=== PATIENT | female | born 1940 | race Caucasian/White ===

== ENCOUNTER 2017-06-02 14:49 | Emergency (ER) | payer OTHER, BC ==
[~2017-06-02] VITALS: Ht 167.6 cm; Wt 56.1 kg
[~2017-06-02 14:49] MED LIST: AZITHROMYCIN250 MG PO; DEXILANT60 MG PO; EXTRA STRENGTH500 M1 PO; KENALOG,ARISTOC15 GM TP; PREDNISONE20 MG PO; TRAZODONE HCL100 MG PO; VENTOLIN HFA18 GM IH
[2017-06-02 18:02] LABS: HEMATOCRIT 37.2 % (36.0-46.0); MCH 32.5 PG (29.0-34.0); MCHC 33.3 G/DL (30.0-36.0); MCV 97.6 FL (83-99); MEAN PLAT.VOLUME 9.8 uM^3 (9.5-12.4); PLATELET COUNT 134 K/uL (156-360); RBC DIS.WIDTH-CV 12.1 % (11.8-14.6); RBC DIS.WIDTH-SD 43.8 % (39-53); RED BLOOD COUNT 3.81 M/uL (3.80-5.20); WHITE BLOOD COUNT 4.5 K/uL (4.1-10.2)
[2017-06-02 18:20] LABS: CHLORIDE 103 mEq/L (99-109); POTASSIUM 4.3 mEq/L (3.7-5.4); SODIUM 139 mEq/L (136-147)
[2017-06-02 18:22] LABS: GLUCOSE 106 mg/dL (70-99)
[2017-06-02 18:23] LABS: ANION GAP 6 MEQ/L (2-14)
[2017-06-02 18:24] LABS: TOTAL BILIRUBIN 0.4 mg/dL (0.0-1.0)
[2017-06-02 18:25] LABS: ALKALINE PHOSPHATASE 68 IU/L (3-129)
[2017-06-02 18:26] LABS: GFR ESTIMATE (CALCULATED) 58 mL/min/
[2017-06-02 18:27] LABS: UREA NITROGEN (BUN) 21 mg/dL (9-23)
[2017-06-02 18:28] LABS: ADD MIUA? YES; BILIRUBIN NEGATIVE; BLOOD NEGATIVE; COLOR YELLOW ((YELLOW)); GLUCOSE (STRIP) NEGATIVE; KETONES NEGATIVE; LEUKOCYTES SMALL; NITRITE NEGATIVE; PROTEIN (STRIP) NEGATIVE; SPECIFIC GRAVITY 1.024 (1.000-1.030); UROBILINOGEN 0.2 MG/DL (0.2-1.0)
[2017-06-02 18:29] LABS: LIPASE 45 U/L (1.0-51.0)
[2017-06-02 18:42] LABS: BACTERIA RARE /HPF; EPITHELIAL CELLS RARE /HPF; HYALINE CASTS 0-5 /LPF; MUCUS TRACE /LPF; RED BLOOD CELLS 0-5 /HPF (0-5)
[2017-06-02] MEDS ORDERED: CIPRO500 MG PO (21:08)
[2017-06-02] MEDS ORDERED: NORCO 5/3251 TABLET PO (21:08)
[2017-06-02] MEDS ORDERED: ZOFRAN ODT4 MG PO (21:08)
[2017-06-02] MEDS ORDERED: FLAGYL500 MG PO (21:08)
[2017-06-02 21:44] VITALS: BP 130/68
== END 2017-06-02 21:45 | disposition home or self-care (01) ==
LOC: EME 14:49
PROVIDERS: Nurse Practitioner Family
DX: K57.92 Diverticulitis of intestine, part unspecified, without perforation or abscess without bleeding (principal); K56.2 Volvulus; Z86.19 Personal history of other infectious and parasitic diseases; Z85.72 Personal history of non-Hodgkin lymphomas; Z88.6 Allergy status to analgesic agent; Z87.891 Personal history of nicotine dependence; Z90.49 Acquired absence of other specified parts of digestive tract
CPT/HCPCS: 74177; 80053; 81003; 83605; 83690; 85027; 87086; 87493; 87506; 99281; 99284; J1885; J2405; J7040